=== PATIENT | female | born 1985 | race Caucasian/White ===

== ENCOUNTER → 2018-05-20 | Day surgery (SDC) | payer OTHER ==
[~2018-05-20] VITALS: Ht 157.5 cm; Wt 54.0 kg
[~2018-05-20] MED LIST: PERCOCET 5-3251 EACH PO
--- NOTE | 2018-05-20 13:51 | Operative Report ---
Operative/Inv Procedure Report Surgery Date: 05/20/18 Name of Procedure: #1 diagnostic arthroscopy right knee #2 OATS procedure right knee medial femoral condyle Pre-Operative Diagnosis: #1 chondral defect right medial femoral condyle #2 Degenerative osteoarthritis medial compartment Post-Operative Diagnosis: Same Estimated Blood Loss: scant Surgeon/Director Pharmacy Services: Moisés BURK,Davey Anesthesia: laryngeal mask airway Drains: None Specimens: Recipient site core of medial femoral condylar bone Tourniquet: 112min Complications: None Condition: Stable Operative Indication: Patient is a 32-year-old woman with a remote history of a right knee problem. She states that she had a piece of cartilage/bone that was removed from her right knee when she was much younger. She has had knee pain and mechanical symptoms. Evaluation recently has shown chondral defect in question, osteochondral defect of the medial femoral condyle. Due to her ongoing issues that interfere with normal activities and the MRI findings as well as failure of conservative measures, patient wished to proceed arthroscopic management. I did explain to the patient that we could try to resurface that area of cartilage damage with a procedure that takes a small piece of poor bone from one part of the knee and placed in the defect (OATS procedure). No other abnormalities were noted on her MRI. Due to these findings and her ongoing symptoms, she wished to proceed with arthroscopic management. I explained to her that if the defect was not contained, then microfracture technique could be done as well. Risks benefits and expectations of the surgical procedure were discussed which included but were not limited to persistent knee pain, persistent mechanical symptoms due to her underlying degenerative changes of the medial femoral condyle, anesthesia risks, infection, injury to blood vessel or nerve, swelling. She wishes to proceed Operative/Procedure Note Note: Patient was brought to the operating room and transferred to the operating table. Once under appropriate anesthesia the right lower extremity was prepped and draped in standard fashion. Preoperative IV and box were given prophylactically. A standard lateral infrapatellar portal site was established and scope was inserted. Patella femoral compartment was visualized through. There is some mild chondral changes of the undersurface of the patella. I entered the medial compartment there was a thickened plica but did not appear to pathologic. No evidence of erythema or irritation of the structure There was no underlying chondral changes of the area of the medial femoral condyle underneath the plica. Into the medial compartment. There was chondral defects primarily in the weightbearing portion of the medial femoral condyle and there was also more posterior lesion weightbearing lesion appeared to be most likely source of her ongoing symptoms. It was measured to be about a centimeter of damaged articular cartilage. There was appearance of the underlying bone in this area. I confirm this after establishing a medial infrapatellar portal site. I probed the articular cartilage which was loose over this area. I then used a shaver to debride the area and measured the appropriate size. It was a contained lesion and therefore an osteochondral transfer could be done. After I confirm this I visualized the ACL which appeared to be intact the notch appeared to be intact I placed leg into figure 4 position and the lateral compartment appeared to be intact. No evidence of meniscal pathology medially or laterally. I went up the lateral gutter there was a loose body in the patellofemoral and supra patellar pouch. This was debrided using a shaver. I then removed all fluid and meniscus from the knee and proceeded to elevate the leg exsanguinated and tourniquet was inflated to facilitate visualization for the harvesting and insertion of graft I then proceeded to obtain a graft from the donor site in standard area of just above the level of level of sulcus terminalis. This was a nonarticular bearing area. Patient did have a relatively small the knee and soft tissues were counseling in the way of proper visualization of this area and therefore I extended the lateral incision about a centimeter proximally after I tried to use the harvester. After extending this incision and after removing the scope from the knee was able to directly visualize the area of harvest. I used the harvester to remove a core. I impacted it to about 15 mm in the core was approximately 15 mm. This taken off the side table and kept in a secure fit place. I then turned my attention to the medial side. Again due to patient's relatively small size of knee soft tissues were in the way of direct arthroscopic insertion of the core therefore extended the medial incision proximally about a centimeter and a half and was able to visualize the area that had been debrided using the ring curettes to fashion the recipient site. I then used the recipient harvester and remove the core of bone in the area of the chondral defect. I impacted the donor graft within this area there was some difficulty with getting the core bone out of the medial femoral condyle recipient site due to the sclerosis that was noted during surgery but also seen on MRI. I did use a curette to fashion the base of the recipient site since insertion of the osteochondral core was somewhat difficult. Once I did this however I was able to impact the corn place initially it appeared to be slightly proud along the most lateral aspect of it again under direct vision and impacted this and I was satisfied with the flushness nature of the graft and weightbearing site and also confirmed this laterally as well. I debrided some of the articular cartilage loose articular cartilage in the posterior lesion this was not a full-thickness defect this was done arthroscopically under direct vision. Again there was significant amount of chronic chondral damage and the site that had been repaired was the most obvious and most serious of the lesions. After this was completed Opus irrigation knee followed I major there was no remaining bone fragments or articular cartilage loose bodies. I removed all fluid and his was from the knee. I then closed the medial and lateral wounds specifically the retinaculum with interrupted 2-0 Vicryl sutures. Subcutaneous tissues closed with 3-0 Vicryl and skin was closed with interrupted nylon sutures in both medial and lateral sides. Appropriate dressings were applied and patient was awakened and taken to recovery room in good condition. No intraoperative complications. Blood loss was minimal Discharge Disposition: PACU
== END ==
LOC: STS 04:11
DX: M24.10 Other articular cartilage disorders, unspecified site (principal); M17.11 Unilateral primary osteoarthritis, right knee; J45.909 Unspecified asthma, uncomplicated
CPT/HCPCS: C9290; J0131; J0690; J1885; J2250